=== PATIENT | male | born 1955 | race Two or more races ===

== ENCOUNTER → 2025-02-04 08:46 | Outpatient (REF) | payer OTHER, SELFPAY | LOC: HWRCS 08:46 | PROVIDERS: ATTENDING PHYSICIAN Internal Medicine Cardiovascular Disease; FAMILY PHYSICIAN Physician Assistant Medical | DX: I25.5 Ischemic cardiomyopathy (principal); I25.10 Atherosclerotic heart disease of native coronary artery without angina pectoris; I10 Essential (primary) hypertension; Z95.1 Presence of aortocoronary bypass graft; G45.9 Transient cerebral ischemic attack, unspecified | CPT/HCPCS: 93306 ==